=== PATIENT | female | born 1960 | race Caucasian/White ===

== ENCOUNTER 2019-11-08 13:58 | Inpatient (IN) ==
[2019-11-08 14:48] LABS: Basophils % 0.4 % (0.0-0.8); Eosinophils # 0.3 10*3/uL (0.0-0.87); Eosinophils % 2.9 % (0.00-10.9); Hematocrit 38.7 VOL% (35.7-47.0); Hemoglobin 12.9 GM/DL (12.0-16.0); Immature Granulocytes % 0.2 %; Immature Granulocytes Absolute 0.02 #; Lymphocytes # 3.5 10*3/uL (1.4-4.0); Lymphocytes % 34.3 % (21.3-54.2); Mean Corpuscular HGB Conc 33.3 GM/DL (32-36); Mean Corpuscular Volume 88.2 FL (87-102); Mean Platelet Volume 11.5 FL (9.6-12.0); Monocytes % 5.8 % (1.7-12.7); Neutrophils % 56.4 % (38.7-73.9); Platelet Count 227 T/CUMM (130-400); Red Blood Count 4.39 MC/CUMM (3.8-5.5); Red Cell Distribution Width 12.6 % (9.3-17.3); White Blood Count 10.2 T/CUMM (4-12)
[2019-11-08 14:55] LABS: Apearance,Urine Slightly Hazy (Clear); Bacteria,Urine Moderate /HPF (Few); Bilirubin,Urine Small mg/dL (Negative); Blood, Urine Small mg/dL (Negative); Glucose,Urine (UA) Negative (Negative); Ketones,Urine Negative (Negative); Mucus,Urine Many /LPF (Occasional); Nitrite,Urine Negative (Negative); Protein,Urine 100 MG/DL; RBC,Urine 2 /HPF (0-4); Squamous Epithelial Cell,Urine Occasional /HPF (0-10); Urine Color Yellow (Yellow); WBC,Urine 8 /HPF (0-6)
[2019-11-08 15:02] LABS: Alanine Aminotransferase 35 U/L (13-56); Albumin 3.3 G/DL (3.4-5.0); Alkaline Phosphatase 53 U/L (45-117); Aspartate Amino Transferase 23 U/L (0-37); Bilirubin,Total < 0.39 MG/DL (0.2-1.0); Blood Urea Nitrogen 14 MG/DL (7-18); Calcium 9.5 MG/DL (8.5-10.1); Estimated Glom Filtration Rate 59 ML/MIN; Glucose 180 MG/DL (74-106); Osmolality,Calculated 278.8 MOS/KG (273-304); Total Protein 8.1 G/DL (6.4-8.3)
[2019-11-08 15:07] LABS: Eosinophils 3 % (0-10); Lymphocytes 35 % (20-55); Segmented Neutrophils 58 % (50-85); Total Cells Counted 100
[2019-11-08 15:08] LABS: Platelet Estimate Adequate
[2019-11-08] MEDS ORDERED: SODIUM CHLORIDE 0.9% 1,000 ML IV STA (15:14)
[2019-11-08 15:36] LABS: Risk Ratio 5.79
[2019-11-08] MEDS ORDERED: cefTRIAXone 1,000 MG in SYRINGE 1 EACH IV STA (16:16)
[2019-11-08] MEDS ORDERED: GLUCAGON 1 MG VIAL IM PRN (16:17)
[2019-11-08] MEDS ORDERED: DEXTROSE 50% 25 GM/50 ML VIAL IV PRN (16:17)
[2019-11-08] MEDS ORDERED: MAGNESIUM SULF RIDER 2 GM in PREMIX 1 EACH IV PRN (16:17)
[2019-11-08] MEDS ORDERED: MAGNESIUM SULF RIDER 4 GM in PREMIX 1 EACH IV PRN (16:17)
[2019-11-08 16:30] LABS: Ferritin 356.6 ng/ml (8-252)
[2019-11-08] MEDS ORDERED: SODIUM CHLORIDE 0.9% 1,000 ML IV SCH (16:30)
[2019-11-08] MEDS ORDERED: SIMETHICONE CHEW 125 MG TABLET PO PRN (16:32)
[2019-11-08] MEDS ORDERED: ALUMINUM/MAGNES/SIMETH MAX STR 30 ML UDCUP PO PRN (16:32)
[2019-11-08] MEDS ORDERED: diphenhydrAMINE CAP 25 MG CAPSULE PO PRN (16:32)
[2019-11-08] MEDS ORDERED: LACTULOSE 20 GM/30 ML UDCUP PO PRN (16:32)
[2019-11-08] MEDS ORDERED: ONDANSETRON 4 MG/2 ML VIAL IV PRN (16:32)
[2019-11-08] MEDS ORDERED: MORPHINE 4 MG/1 ML VIAL IV PRN (16:32)
[2019-11-08] MEDS ORDERED: traZODone 50 MG TABLET PO PRN (16:32)
[2019-11-08] MEDS ORDERED: ZALEPLON 5 MG CAPSULE PO PRN (16:32)
[2019-11-08] MEDS ORDERED: BISACODYL 5 MG TABLET PO PRN (16:32)
[2019-11-08] MEDS ORDERED: DOCUSATE SODIUM 100 MG CAPSULE PO PRN (16:32)
[2019-11-08] MEDS ORDERED: MAGNESIUM SULF RIDER 2 GM in PREMIX 1 EACH IV ONE (21:00)
[2019-11-08] MEDS: LACTATED RINGERS 1,000 ML IV SCH (21:40)
[2019-11-08] MEDS: HEPARIN 5,000 UNIT/1 ML VIAL SUBCUT SCH (21:45)
[2019-11-09] MEDS: INSULIN REGULAR 100 UNIT/ML SUBCUT SCH ×5 (02:10→23:03)
[2019-11-09] MEDS: POTASSIUM CHLORIDE RIDER 10 MEQ in PREMIX 1 EACH IV PRN ×5 (02:16→06:49)
[2019-11-09] MEDS: HEPARIN 5,000 UNIT/1 ML VIAL SUBCUT SCH ×3 (05:41→20:15)
[2019-11-09 06:07] LABS: Ferritin 319.1 ng/ml (8-252)
[2019-11-09] MEDS: PANTOPRAZOLE 40 MG VIAL IV SCH (09:20)
[2019-11-09] MEDS: cefTRIAXone 1,000 MG in SYRINGE 1 EACH IV SCH (09:20)
[2019-11-09] MEDS: THIAMINE 200 MG/2 ML VIAL IV SCH (09:21)
[2019-11-09] MEDS: LACTATED RINGERS 1,000 ML IV SCH ×3 (09:22→20:20)
[2019-11-09] MEDS: POLYETHYLENE GLYCOL POWDER 17 GM PACK PO SCH (10:37)
[2019-11-09] MEDS: hydrALAZINE 20 MG/1 ML VIAL IV PRN (10:51)
[2019-11-10] MEDS: LACTATED RINGERS 1,000 ML IV SCH ×2 (04:13→17:23)
[2019-11-10] MEDS: HEPARIN 5,000 UNIT/1 ML VIAL SUBCUT SCH ×3 (04:17→20:43)
[2019-11-10] MEDS: INSULIN REGULAR 100 UNIT/ML SUBCUT SCH ×4 (05:02→23:25)
[2019-11-10 05:28] LABS: Basophils % 0.4 % (0.0-0.8); Eosinophils # 0.3 10*3/uL (0.0-0.87); Eosinophils % 4.6 % (0.00-10.9); Hematocrit 35.1 VOL% (35.7-47.0); Hemoglobin 11.7 GM/DL (12.0-16.0); Immature Granulocytes % 0.1 %; Immature Granulocytes Absolute 0.01 #; Lymphocytes % 43.5 % (21.3-54.2); Mean Corpuscular HGB Conc 33.3 GM/DL (32-36); Mean Corpuscular Volume 88.9 FL (87-102); Mean Platelet Volume 12.6 FL (9.6-12.0); Monocytes % 8.4 % (1.7-12.7); Platelet Count 236 T/CUMM (130-400); Red Blood Count 3.95 MC/CUMM (3.8-5.5); Red Cell Distribution Width 12.4 % (9.3-17.3); White Blood Count 6.9 T/CUMM (4-12)
[2019-11-10 06:02] LABS: Calcium 8.9 MG/DL (8.5-10.1); Osmolality,Calculated 269.8 MOS/KG (273-304)
[2019-11-10 06:15] LABS: Ferritin 382.4 ng/ml (8-252)
[2019-11-10] MEDS ORDERED: POTASSIUM CHLORIDE 20 MEQ TABLET PO PRN (07:46)
[2019-11-10] MEDS: THIAMINE 200 MG/2 ML VIAL IV SCH (08:28)
[2019-11-10] MEDS: cefTRIAXone 1,000 MG in SYRINGE 1 EACH IV SCH (08:28)
[2019-11-10] MEDS: PANTOPRAZOLE 40 MG VIAL IV SCH (08:29)
[2019-11-10] MEDS: POLYETHYLENE GLYCOL POWDER 17 GM PACK PO SCH (08:33)
[2019-11-10] MEDS: POTASSIUM CHLORIDE RIDER 10 MEQ in PREMIX 1 EACH IV PRN ×4 (08:33→21:30)
[2019-11-10] MEDS: hydrALAZINE 20 MG/1 ML VIAL IV PRN (12:06)
[2019-11-11] MEDS: HEPARIN 5,000 UNIT/1 ML VIAL SUBCUT SCH ×2 (04:57→13:13)
[2019-11-11] MEDS: INSULIN REGULAR 100 UNIT/ML SUBCUT SCH ×2 (05:17→12:03)
[2019-11-11 05:47] LABS: Basophils % 0.5 % (0.0-0.8); Eosinophils # 0.3 10*3/uL (0.0-0.87); Eosinophils % 5.1 % (0.00-10.9); Hematocrit 37.5 VOL% (35.7-47.0); Hemoglobin 12.5 GM/DL (12.0-16.0); Immature Granulocytes % 0.3 %; Immature Granulocytes Absolute 0.02 #; Lymphocytes # 2.6 10*3/uL (1.4-4.0); Lymphocytes % 42.2 % (21.3-54.2); Mean Corpuscular HGB Conc 33.3 GM/DL (32-36); Mean Corpuscular Volume 87.6 FL (87-102); Mean Platelet Volume 11.7 FL (9.6-12.0); Monocytes % 7.9 % (1.7-12.7); Platelet Count 241 T/CUMM (130-400); Red Blood Count 4.28 MC/CUMM (3.8-5.5); Red Cell Distribution Width 12.4 % (9.3-17.3); White Blood Count 6.1 T/CUMM (4-12)
[2019-11-11 05:59] LABS: Calcium 9.1 MG/DL (8.5-10.1); Osmolality,Calculated 276.5 MOS/KG (273-304)
[2019-11-11 06:04] LABS: Ferritin 420.3 ng/ml (8-252)
[2019-11-11 06:10] LABS: Hypochromasia 1+; Platelet Estimate Adequate
[2019-11-11] MEDS ORDERED: LACTATED RINGERS 1,000 ML IV SCH (08:00)
[2019-11-11] MEDS: POLYETHYLENE GLYCOL POWDER 17 GM PACK PO SCH (08:49)
[2019-11-11] MEDS: PANTOPRAZOLE 40 MG VIAL IV SCH (08:49)
[2019-11-11] MEDS: THIAMINE 200 MG/2 ML VIAL IV SCH (08:50)
[2019-11-11] MEDS: cefTRIAXone 1,000 MG in SYRINGE 1 EACH IV SCH (08:50)
[2019-11-11] MEDS ORDERED: propofoL 200 MG/20 ML VIAL IV ONE (09:00)
[2019-11-11] MEDS ORDERED: LIDOCAINE 2% 5 ML VIAL ONE (09:00)
[2019-11-11 12:50] VITALS: BP 156/98
== END 2019-11-11 15:50 | disposition home or self-care (01) | DRG 282 ==
LOC: SUATTDRO → N.ED 13:58 → N.EDINP 13:58 → N.3E 19:49 → N.4E 11-09 10:15 → SUATTDRO 11-09 15:02
PROVIDERS: ADMIT Emergency Medicine; ATTEND Internal Medicine